=== PATIENT | female | born 1945 | race Caucasian/White ===

== ENCOUNTER 2021-06-14 06:34 | Day surgery (SDC) | payer MEDICARE, SELFPAY ==
[2021-06-08 11:22] VITALS: BMI 26.5
--- NOTE | 2021-06-10 12:44 | MHC.SHP ---
Pre-Procedural Eval Section A Date of Service: 06/10/21 The patient is an INPATIENT: No Changes since office visit: No Cold of Flu in the past 2 weeks, No New Medical Problems, No Changes in Medication and No Patient answered all questions The History & Physical has been completed within 30 days and I have reviewed it.: Yes Section B Chief Complaint: cataract right eye Allergies: Allergies Allergy/AdvReac Type Severity Reaction Status Date / Time Latex, Natural Rubber Allergy Intermediate Itching Verified 06/08/21 11:19 Penicillins Allergy Intermediate Rash Verified 06/08/21 11:19 sodium thiopental AdvReac Vomiting Uncoded 06/08/21 11:19 Plan Diagnosis/Plan: Unchanged I have reviewed the history and physical and performed a pertinent physical examination on my patient. No changes have occurred unless specified.
--- NOTE | 2021-06-11 08:59 | P.CONAN_ITS ---
Documented by User: Luh Pérez NP 06/11/21 09:00 HPI - Anesthesia Eval Consult details Narrative: 75yo F for Right Cataract Multifocal with IOL Insertion PCP cleared No prev cataract on record [facility] Past Medical History Medical History (Updated 06/08/21 @ 11:21 by Evelia Chairez, BRANDON) Anxiety Arthritis Back pain Eczema Edema of both lower extremities Elevated cholesterol GERD (gastroesophageal reflux disease) HTN (hypertension) Murmur PONV (postoperative nausea and vomiting) Poor vision Surgical History Surgical History (Updated 06/08/21 @ 11:16 by Evelia Chairez, BRANDON) Hx of appendectomy Hx of colonoscopy Hx of hysterectomy Social History Social History Are you a primary sub acute care nurse to a significant other at home: No Do you presently have visiting nurse or other home services: No (son and grandson will be with her for dos) Patient Tobacco Use Status: Former Tobacco user Quit Date: Tobacco use type: Cigarette Use of substances other than those prescribed or required for medical reasons: No Have you been hit, kicked, punched, or otherwise hurt by someone within the past year? If so, by whom?: No Are you DNR?: No Advance Directives: No (will bring copy DOS) Advance Directives Information Provided: No Advance Directives on File: No Meds Allergies Allergy/AdvReac Type Severity Reaction Status Date / Time Latex, Natural Rubber Allergy Intermediate Itching Verified 06/08/21 11:19 Penicillins Allergy Intermediate Rash Verified 06/08/21 11:19 sodium thiopental AdvReac Vomiting Uncoded 06/08/21 11:19 Home Medications Medication Instructions Recorded Confirmed Last Taken Type amiloride 5 mg tablet 1 tab PO DAILY 06/08/21 06/08/21 Unknown History amlodipine 10 mg tablet 1 tab PO DAILY 06/08/21 06/14/21 06/14/21 History hydrochlorothiazide 50 mg tablet 1 tab PO DAILY 06/08/21 06/08/21 Unknown History meloxicam 7.5 mg tablet 1 tab PO DAILY 06/08/21 06/08/21 Unknown History omeprazole 20 mg capsule,delayed 1 cap PO DAILY 06/08/21 06/08/21 Unknown Histor y release quinapril 40 mg tablet 1 tab PO DAILY 06/08/21 06/08/21 Unknown History rosuvastatin 10 mg tablet 1 tab PO BEDTIME 06/08/21 06/08/21 Unknown History Exam Exam Date and Time: June 11, 2021 0859 Height,Weight and Vital Signs: Height 5 ft 3 in Weight 68.039 kg Assessment and Plan Assessment Anesthesia Assessment: Chart Reviewed Documented by User: Jason Carvajal MD 06/14/21 08:13 [facility] Past Medical History Medical History (Updated 06/08/21 @ 11:21 by Evelia Chairez, BRANDON) Anxiety Arthritis Back pain Eczema Edema of both lower extremities Elevated cholesterol GERD (gastroesophageal reflux disease) HTN (hypertension) Murmur PONV (postoperative nausea and vomiting) Poor vision Family History Family history of problems with anesthesia: No Surgical History Surgical History (Updated 06/08/21 @ 11:16 by Evelia Chairez, BRANDON) Hx of appendectomy Hx of colonoscopy Hx of hysterectomy History of Problems with Anesthesia: No Social History Social History Are you a primary sub acute care nurse to a significant other at home: No Do you presently have visiting nurse or other home services: No (son and grandson will be with her for dos) Patient Tobacco Use Status: Former Tobacco user Quit Date: Tobacco use type: Cigarette Use of substances other than those prescribed or required for medical reasons: No Have you been hit, kicked, punched, or otherwise hurt by someone within the past year? If so, by whom?: No Are you DNR?: No Advance Directives: No (will bring copy DOS) Advance Directives Information Provided: No Advance Directives on File: No Meds Allergies Allergy/AdvReac Type Severity Reaction Status Date / Time Latex, Natural Rubber Allergy Intermediate Itching Verified 06/08/21 11:19 Penicillins Allergy Intermediate Rash Verified 06/08/21 11:19 sodium thiopental AdvReac Vomiting Uncoded 06/08/21 11:19 Home Medications Medication Instructions Recorded Confirmed Last Taken Type amiloride 5 mg tablet 1 tab PO DAILY 06/08/21 06/08/21 Unknown History amlodipine 10 mg tablet 1 tab PO DAILY 06/08/21 06/14/21 06/14/21 History hydrochlorothiazide 50 mg tablet 1 tab PO DAILY 06/08/21 06/08/21 Unknown History meloxicam 7.5 mg tablet 1 tab PO DAILY 06/08/21 06/08/21 Unknown History omeprazole 20 mg capsule,delayed 1 cap PO DAILY 06/08/21 06/08/21 Unknown History release quinapril 40 mg tablet 1 tab PO DAILY 06/08/21 06/08/21 Unknown History rosuvastatin 10 mg tablet 1 tab PO BEDTIME 06/08/21 06/08/21 Unknown History Exam Airway Mallampati Class: II TM Dist: >3cm Neck ROM: Full Partial: Lower Loose/Missing/Broken Teeth: Yes Heart: [id number] Lungs: cta b/l Assessment and Plan Assessment Anesthesia Assessment: Anesthesia Plan Discussed Final Anesthetic Review Family History of Problems with Anesthesia: No History of Problems with Anesthesia: No NPO: Yes ASA Class: III Final Preanesthetic Review: No Changes in Pt Med Stat, Meds/Allgs Chart Reviewed, Consent Obtained/Reviewed and Anes Risks/Benef Reviewed Patient Risk: Intermediate Procedure Risk: Low Anesthetic Plan Anesthetic Plan: MAC: and Agree w/ Assess. and Plan Disposition: Standard PACU
--- NOTE | 2021-06-14 07:39 | PC.NURSE ---
VERBALIZES UNDERSTANDING OF DISCHARGE INSTRUCTIONS.
[2021-06-14 07:49] VITALS: BP 156/78; PULSE 88; RESP 18; TEMP 36.4; O2SAT 98
[2021-06-14] MEDS: Tropicamide 1 % Ophth Sol 3 ML BTL 1 DROP EYE-RIGHT ×3 (07:54→08:03)
[2021-06-14] MEDS: Tetracaine HCl/PF 0.5% Oph Sol 4 ML DROPS 1 DROP EYE-RIGHT (07:54)
[2021-06-14] MEDS: Phenylephrine HCL 2.5% Oph SoL 2 ML BOTTLE 1 DROP EYE-RIGHT ×3 (07:55→08:03)
[2021-06-14] MEDS: Lactated Ringers 500 ML 50 ML IV (07:59)
--- NOTE | 2021-06-14 09:17 | HO.PNOPHT ---
Ophthalmology Procedure Procedure Date of Service: 06/14/21 Ophthalmology Viscoelastic: Healmelody Duet Dual Pack Pro Ophthalmology Lenses: TECNIS [id number] (17.5) Procedure Notes: PREOPERATIVE DIAGNOSIS: Decreased visual acuity right eye secondary to cataract POSTOPERATIVE DIAGNOSIS: Same PROCEDURE: Right cataract extraction with intraocular lens insertion SURGEON: Lobito Solomon M.D. ANESTHESIA: Topical/MAC ESTIMATED BLOOD LOSS: None COMPLICATIONS: None After obtaining informed consent, the patient was brought to the operating room suite and placed in the supine position. After adequate sedation per anesthesia, topical drops of Tetracaine were given to the right eye. The eye was then prepped and draped in the usual sterile fashion. The operating room microscope was then positioned over the operative eye and a lid speculum placed. A paracentesis was created. Viscoelastic was then instilled into the anterior chamber. A three plane incision was then created temporally, utilizing a 2.85 mm keratome. Capsulotomy forceps were then utilized to create a circular tear capsulotomy. Hydrodissection and hydrodelineation were carried out until adequate mobilization of the nucleus occurred. Phacoemulsification was then utilized to remove the dense central nucleus followed by removal of the cortical material utilizing the automated aspiration irrigation unit. Viscoelastic was instilled into the posterior capsular bag followed by placement of a posterior chamber intraocular lens without difficulty. The residual Viscoelastic was then removed utilizing the automated IA machine. The wound was checked and found to be watertight. The patient tolerated the procedure well and the lid speculum was removed. Intracameral injection of Vigamox 0.1 mL followed by a subtenon injection of Kenalog-40 0.2 mL were administered. The patient will be seen in the a.m.
[2021-06-14 09:43] VITALS: BP 133/57; PULSE 79; RESP 16; TEMP 36.9; O2SAT 96
== END 2021-06-14 09:58 | disposition home or self-care (01) ==
PROVIDERS: PCP Nurse Practitioner Primary Care; Visit Provider Ophthalmology
PROC: (CPT 66985; principal; 2021-06-14 09:20)
DX: H25.11 Age-related nuclear cataract, right eye (principal); H54.7 Unspecified visual loss; E78.00 Pure hypercholesterolemia, unspecified; I10 Essential (primary) hypertension; M06.9 Rheumatoid arthritis, unspecified; Z79.899 Other long term (current) drug therapy; Z88.0 Allergy status to penicillin
CPT/HCPCS: 66984; J2250; J3010; J3300; V2632